=== PATIENT | female | born 1935 | race Caucasian/White ===

== ENCOUNTER → 2016-05-30 | Outpatient (CLI) | payer MEDICARE ==
--- NOTE | 2016-05-30 12:01 | DI ---
INDICATION: ITS.REASON: R05 COUGH PROCEDURE: CHEST 2-VIEWS UPRIGHT (PA \T\ LAT) Encounter: Initial COMPARISON: CT chest dated October 04, 2015 and chest x-ray dated September 27, 2015 FINDINGS: Interval growth of the right upper lobe nodule and right lower lobe mass. Right upper lobe nodule measures 2.6 cm in diameter. Right lower lobe mass measures 6.5 cm in diameter. There is consolidation in the right lower lobe. Small right pleural effusion. Left lung appears clear. Heart size and mediastinal contours are within normal limits. Pulmonary vascularity is normal. No significant skeletal abnormality seen. Impression: 1. Enlarging right upper lobe nodule and right lower lobe mass consistent with malignancy. Recommend correlation with patient's cancer history. 2. New right basilar consolidation could be due to postobstructive atelectasis or pneumonia with an associated small right pleural effusion. .
== END ==
LOC: IMA 11:21
PROVIDERS: ATTEND Family Medicine
DX: R91.8 Other nonspecific abnormal finding of lung field (principal); J90 Pleural effusion, not elsewhere classified; R05 Cough